=== PATIENT | female | born 1985 | race Two or more races ===

== ENCOUNTER 2017-01-23 18:00 | Emergency (ER) | payer OTHER ==
[~2017-01-23] VITALS: Ht 157.5 cm; Wt 95.3 kg
[2017-01-23 18:08] VITALS: BP 148/79
[2017-01-23] MEDS ORDERED: HYDROCODON-ACE1 EA13 ORAL (18:14)
[2017-01-23] MEDS ORDERED: OMEPRAZOLE20 M2 ORAL (18:14)
[2017-01-23] MEDS ORDERED: Surgicel 4in x 8in TOPIC ONE (18:30)
[2017-01-23] MEDS ORDERED: Lidocaine 1% MPF 10mg/ml 5ml INJ ONE (18:45)
[2017-01-23 19:33] VITALS: BP 148/79
--- NOTE | 2017-01-23 21:26 | Emergency Room Report ---
History of Present Illness General Chief Complaint: Pain Source: Patient Present Illness HPI The patient is a 31-year-old female presenting for right thumb pain. She states that she closed the car door onto her thumb 3 days ago. Pain has continued as well as swelling. She has noticed a dark color under her nail. Pain is a 9/10 dull ache and does not radiate. Worse with touch. She denies any numbness or tingling. she has used [employer] at home which has not been helping. She denies any other symptoms Allergies: Coded Allergies: No Known Allergies (Unverified , 01/23/17) Patient History Past Medical History: see triage record Pertinent Family History: none Last Menstrual Period: 01/15/17 Now: No : 4 Para: 4 Reviewed Nursing Documentation: PMH: Agreed, PSxH: Agreed Nursing Documentation-PMH Past Medical History: No Stated History Review of Systems All Other Systems: negative except mentioned in HPI Physical Exam Vital Signs Date Time Temp Pulse Resp B/P (MAP) Pulse Ox O2 Delivery O2 Flow Rate FiO2 01/23/17 18:07 97.9 73 14 155/84 98 Room Air Sp02 EP Interpretation: reviewed, normal General Appearance: no apparent distress, alert, GCS 15, non-toxic Head: normocephalic, atraumatic Eyes: bilateral eye normal inspection, bilateral eye PERRL Musculoskeletal: back normal, normal range of motion, swelling - R distal thumb , tender - TTP over the R distal thumb Neurologic: alert, oriented x3, responsive, motor strength/tone normal, sensory intact, speech normal Psychiatric: judgement/insight normal, memory normal, mood/affect normal, no suicidal/homicidal ideation Skin: other - R thumb: subungual hematoma. TTP. Lymphatic: no adenopathy Procedures Splinting Splinting : Consent: Verbal Location: R 1st digit Pre-Made Type: metal Pre-Proc Neuro Vasc Exam: normal Post-Proc Neuro Vasc Exam: normal Patient Tolerated: Well Complications: None Nail Trepanation Nail Trepanation : Consent: Emergent Nail Trepanation Location: R thumb Method of Drainage: nail cauterized Sterile Dressing Applied: No Finger Splint: Yes Patient Tolerated: Well Complications: None Medical Decision Making PA Attestation Dr. Taveras is my supervising physician. Patient management was discussed with my supervising physician Diagnostic Impression: Primary Impression: Subungual hematoma ER Course The patient is a 31-year-old female presenting for right thumb pain. Ddx considered include but not limited to sprain/strain, subungual hematoma, fracture, contusion Physical exam: No apparent distress Right hand: There is a subungual hematoma of the first digit. There is also surrounding soft tissue swelling. Full active range of motion of the IP joint is intact. Sensation is intact. X-ray of the right hand unremarkable A digital block was performed for the right first digit. Nail trepanation performed with cauterization. Dark blood was released and the patient immediately felt better. The area was cleaned and a splint was placed. She will follow up with primary doctor. ER precautions given Other X-Ray Diagnostic Results Other X-Ray Diagnostic Results : X-Ray ordered: R hand # of Views/Limited Vs Complete: 3 View, Complete Indication: Pain EP Interpretation: Yes PA Xray: Interpretation reviewed, by supervising MD, and agrees with findings. Interpretation: no dislocation, no soft tissue swelling, no fractures Impression: No acute disease Electronically Signed by: Jayson Zamarripa PA-C Last Vital Signs Date Time Temp Pulse Resp B/P (MAP) Pulse Ox O2 Delivery O2 Flow Rate FiO2 01/23/17 19:33 97.9 84 14 148/79 98 Room Air Status: improved Disposition: HOME, SELF-CARE Condition: Improved Patient Instructions: Subungual Hematoma Additional Instructions: I discussed my findings with the patient. All questions and concerns have been answered. Treatment and medication compliance have been addressed. I advised the patient that they need to follow up with PMD in 3-5 days. Return to ED if symptoms worsen, new symptoms arise, or if needed for any reason. Patient verbalized understanding of discharge instructions. JAYSON ZAMARRIPA Jan 23, 2017 21:25
--- NOTE | 2017-01-24 14:46 | Diagnostic Imaging Report ---
Indication: Pain Technique: XRAY HAND MIN 3V RIGHT Comparison: None Findings: There is no acute fracture or dislocation. Joint spaces and anatomic alignment are preserved. No focal soft tissue defect is appreciated. No radiopaque foreign body is seen. Impression: No acute fracture or dislocation.
== END 2017-01-23 19:33 | disposition home or self-care (01) ==
LOC: EMR 18:45
DX: S60.111A Contusion of right thumb with damage to nail, initial encounter (principal); W22.8XXA Striking against or struck by other objects, initial encounter; Y92.810 Car as the place of occurrence of the external cause
CPT/HCPCS: 29130; 99283

== ENCOUNTER 2017-12-09 16:53 | Emergency (ER) | payer BC, OTHER ==
[~2017-12-09] VITALS: Ht 154.9 cm; Wt 90.7 kg
[~2017-12-09 16:53] MED LIST: HYDROCODON-ACE1 EA13 ORAL; OMEPRAZOLE20 M2 ORAL
[2017-12-09] MEDS ORDERED: NKM (17:04)
[2017-12-09] MEDS ORDERED: AMLODIPINE BESYL5 MG ORAL (17:05)
[2017-12-09] MEDS ORDERED: Acetaminophen 500mg (ES) tab ORAL ONE (17:30)
[2017-12-09] MEDS ORDERED: Methocarbamol 500mg tab ORAL ONE (17:30)
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
[2017-12-09] MEDS ORDERED: TYLENOL EXTRA500 MG ORAL (18:24)
[2017-12-09] MEDS ORDERED: LIDOCAINE700 M1 TP (18:24)
[2017-12-09] MEDS ORDERED: ROBAXIN500 MG PO (18:24)
[2017-12-09 18:36] VITALS: BP 134/74
--- NOTE | 2017-12-10 08:47 | Diagnostic Imaging Report ---
Indication: Shoulder pain Technique: 3 views of the right shoulder Comparison: none Findings: No acute fractures. No dislocations. The joint spaces are preserved. Impression: Negative
--- NOTE | 2017-12-10 08:49 | Diagnostic Imaging Report ---
Indication: Neck pain Technique: 3 views of the cervical spine Comparison: none Findings: Bony alignment is normal. No acute fractures. No dislocations. Vertebral body heights are preserved. Disc spaces are preserved. There are minimal degenerative proliferative changes of the lower cervical spine Impression: No acute process
--- NOTE | 2017-12-10 08:50 | Diagnostic Imaging Report ---
Indication: Lumbar spine pain Technique: 3 views of the lumbar spine Comparison: None Findings: There is a transitional lumbosacral segment. Bony alignment is normal. Vertebral body heights are preserved. Disc spaces are preserved. No acute fractures. Sacroiliac joint spaces are preserved. The surrounding soft tissues are unremarkable Impression: Negative
== END 2017-12-09 18:40 | disposition home or self-care (01) ==
LOC: EMR 18:31
DX: S39.012A Strain of muscle, fascia and tendon of lower back, initial encounter (principal); S46.912A Strain of unspecified muscle, fascia and tendon at shoulder and upper arm level, left arm, initial encounter; V43.52XA Car driver injured in collision with other type car in traffic accident, initial encounter; Y92.410 Unspecified street and highway as the place of occurrence of the external cause; M54.2 Cervicalgia; I10 Essential (primary) hypertension
CPT/HCPCS: 72020; 72040; 99284